=== PATIENT | female | born 1960 | race Caucasian/White ===

== ENCOUNTER 2019-10-26 23:57 | Inpatient (IN) | payer MEDICARE ==
[~2019-10-26] VITALS: Ht 170.2 cm; Wt 66.4 kg
--- NOTE | 2019-10-27 00:22 | NUR ---
PT BIB EMS FROM [facility] TRANSFER FOR ALTERED MENTAL STATUS WITH POSSIBLE UTI. PT BASLINE INCONTINENT, HX OF DEMENTIA. ON ROOM AIR, PT AOX4 ON ARRIVAL, NEURO INTACT, MOVES ALL. REQUESTING MEAL ON ARRIVAL TO ED. PT CONNECTED TO MONITORING, CALL LIGHT WITHIN REACH, ALL SAFETY MEASURES IN PLACE.
--- NOTE | 2019-10-27 00:37 | NUR ---
Jannette schrader in ED - 10/27/19 at 0037 by MELI TASK RN: PT ASSISTED TO BEDPAN AT THIS TIME. WET DIAPER REMOVED FROM PT. PT HAS CALL LIGHT WITHIN REACH AT THIS TIME.
--- NOTE | 2019-10-27 00:37 | NUR ---
TASK RN: PT ASSISTED TO BEDPAN AT THIS TIME. WET DIAPER REMOVED FROM PT. PT HAS CALL LIGHT WITHIN REACH AT THIS TIME.
--- NOTE | 2019-10-27 00:52 | NUR ---
TASK RN: PT PROVIDED WITH A SANDWICH FROM [employer] AFTER SUCCESSFULLY PASSING DYSPHAGIA SCREENING. PT RESTING COMFORTABLY IN RNEY WITH CALL LIGHT WITHIN REACH.
--- NOTE | 2019-10-27 01:17 | NUR ---
PT AOX3, BELIEVES THE YEAR IS 2011. PT OFF BEDPAN, VOIDED BLADDER, PT ATE 100% OF MEAL WITHOUT DIFFICULTY, CALL LIGHT WTIHIN REACH. ALL SAFETY MEASURES IN PLACE.
--- NOTE | 2019-10-27 01:41 | NUR ---
FIRST ATTEMPT TO CALL REPORT.
[2019-10-27] MEDS ORDERED: ONDANSETRON 2MG/ML, 2ML IVPush PRN (02:00)
[2019-10-27 02:43] VITALS: BP 110/71
[2019-10-27] MEDS ORDERED: LORazepam 2 MG/ML, 1ML IVPush ONE ×2 (07:00→14:30)
[2019-10-27 08:22] VITALS: BP 115/63
[2019-10-27] MEDS: ASPIRIN 81 MG TABLET CHEW PO/NG SCH (10:32)
[2019-10-27 10:36] VITALS: BP 107/70
--- NOTE | 2019-10-27 11:25 | NUR ---
Rec: chopped/thin liquids; Do not anticipate needs for [employer] intervention in regards to dysphagia at time of discharge. Addendum: 10/27/19 at 1125 by Nichelle MATHIS Amended: Links added.
[2019-10-27 12:51] VITALS: BP 103/71
[2019-10-27 16:33] VITALS: BP 123/73
[2019-10-27 19:32] VITALS: BP 117/62
[2019-10-27] MEDS: ATORVASTATIN 40 MG TABLET PO SCH (21:00)
[2019-10-28 01:01] VITALS: BP 124/71
[2019-10-28 06:23] VITALS: BP 109/68
[2019-10-28 09:14] LABS: ALBUMIN 3.5 g/dL (3.4-5.0); ANION GAP 7 mmol/L (5-15); CALCIUM 9.1 mg/dL (8.5-10.1); CHLORIDE 112 mmol/L (98-107)
[2019-10-28 09:18] LABS: CREATININE 0.64 mg/dL (0.55-1.02)
[2019-10-28 09:19] LABS: ALANINE AMINOTRANSFERASE 20 U/L (12-78); ALKALINE PHOSPHATASE 66 U/L (45-117); BILIRUBIN,TOTAL 0.4 mg/dL (0.2-1.0); CHOL/HDL RATIO 3.4; CHOLESTEROL, TOTAL 179 mg/dL (140-239); HDL CHOL % 30 % (28-40); HDL CHOLESTEROL (DIRECT) 53 mg/dL (40-60); LDL CHOLESTEROL,CALCULATED 104 mg/dL (54-169); TOTAL PROTEIN 7.6 g/dL (6.4-8.2); TRIGLYCERIDES 111 mg/dL (50-200); VLDL CHOLESTEROL 22 mg/dL (0-25)
[2019-10-28] MEDS: ASPIRIN 81 MG TABLET CHEW PO/NG SCH (09:48)
[2019-10-28 12:21] LABS: BASOPHILS # (AUTO) 0.04 x10^3/uL (0-0.1); BASOPHILS % (AUTO) 1 % (0-1); EOSINOPHILS # (AUTO) 0.22 x10^3/uL (0-0.4); EOSINOPHILS % (AUTO) 3 % (1-7); LYMPHOCYTES # (AUTO) 1.48 x10^3/uL (1-3.4); LYMPHOCYTES % (AUTO) 21 % (22-44); MD NO; MEAN CORPUSCULAR HGB CONC 33.4 g/dL (32.4-35.8); MEAN CORPUSCULAR VOLUME 101.8 fL (80-100); MEAN PLATELET VOLUME 8.9 fL (7.4-10.4); MONOCYTES # (AUTO) 0.33 x10^3/uL (0.2-0.8); MONOCYTES % (AUTO) 5 % (2-9); NEUTROPHILS # (AUTO) 4.87 x10^3/uL (1.8-6.8); NEUTROPHILS % (AUTO) 70 % (42-75); PLATELET COUNT 303 x10^3/uL (130-400); RED BLOOD COUNT 4.43 x10^6/uL (3.82-5.3); RED CELL DISTRIBUTION WIDTH 13.8 % (9.6-15.2)
[2019-10-28 12:24] VITALS: BP 120/74
[2019-10-28 19:00] VITALS: BP 139/81
[2019-10-28] MEDS: ATORVASTATIN 40 MG TABLET PO SCH (20:33)
[2019-10-29 02:00] VITALS: BP 131/76
[2019-10-29 02:22] LABS: MICROSCOPIC INDICATED
[2019-10-29 05:55] LABS: BASOPHILS # (AUTO) 0.04 x10^3/uL (0-0.1); BASOPHILS % (AUTO) 1 % (0-1); EOSINOPHILS # (AUTO) 0.22 x10^3/uL (0-0.4); EOSINOPHILS % (AUTO) 3 % (1-7); LYMPHOCYTES % (AUTO) 28 % (22-44); MD NO; MEAN CORPUSCULAR HEMOGLOBIN 33.3 pg (27.0-34.8); MEAN CORPUSCULAR HGB CONC 32.6 g/dL (32.4-35.8); MEAN CORPUSCULAR VOLUME 101.9 fL (80-100); MEAN PLATELET VOLUME 9.3 fL (7.4-10.4); MONOCYTES # (AUTO) 0.49 x10^3/uL (0.2-0.8); MONOCYTES % (AUTO) 7 % (2-9); NEUTROPHILS # (AUTO) 4.47 x10^3/uL (1.8-6.8); NEUTROPHILS % (AUTO) 62 % (42-75); PLATELET COUNT 302 x10^3/uL (130-400); RED BLOOD COUNT 4.45 x10^6/uL (3.82-5.3); RED CELL DISTRIBUTION WIDTH 13.8 % (9.6-15.2)
[2019-10-29 06:30] LABS: ALBUMIN 3.5 g/dL (3.4-5.0); ANION GAP 6 mmol/L (5-15); CALCIUM 8.9 mg/dL (8.5-10.1); CHLORIDE 109 mmol/L (98-107)
[2019-10-29 06:36] LABS: ALANINE AMINOTRANSFERASE 19 U/L (12-78); ALKALINE PHOSPHATASE 67 U/L (45-117); BILIRUBIN,TOTAL 0.7 mg/dL (0.2-1.0); TOTAL PROTEIN 7.6 g/dL (6.4-8.2)
[2019-10-29 06:40] VITALS: BP 121/75
[2019-10-29] MEDS: ASPIRIN 81 MG TABLET CHEW PO/NG SCH (09:01)
[2019-10-29 12:04] VITALS: BP 107/73
[2019-10-29 18:42] VITALS: BP 112/76
[2019-10-29] MEDS: ATORVASTATIN 40 MG TABLET PO SCH (21:01)
[2019-10-30 00:18] VITALS: BP 104/70
[2019-10-30 06:40] VITALS: BP 105/70
[2019-10-30] MEDS: ASPIRIN 81 MG TABLET CHEW PO/NG SCH (10:03)
[2019-10-30 13:32] VITALS: BP 107/71
[2019-10-30 19:56] VITALS: BP 112/79
[2019-10-30] MEDS: ATORVASTATIN 40 MG TABLET PO SCH (20:25)
[2019-10-31 01:02] VITALS: BP 120/78
[2019-10-31 06:53] VITALS: BP 121/83
[2019-10-31] MEDS: ASPIRIN 81 MG TABLET CHEW PO/NG SCH (08:05)
[2019-10-31 12:56] VITALS: BP 103/68
[2019-10-31 18:57] VITALS: BP 114/70
[2019-10-31] MEDS: ATORVASTATIN 40 MG TABLET PO SCH (20:36)
[2019-11-01 00:31] VITALS: BP 105/68
[2019-11-01 07:36] VITALS: BP 112/71
[2019-11-01] MEDS: ASPIRIN 81 MG TABLET CHEW PO/NG SCH (09:02)
[2019-11-01 12:45] VITALS: BP 107/66
[2019-11-01] MEDS ORDERED: ASPI-515 PO/NG (13:29)
[2019-11-01] MEDS ORDERED: ATOR40TA78 PO (13:29)
== END 2019-11-01 14:35 | disposition home or self-care (01) | DRG 69 ==
LOC: ED 10-27 00:15 → EDIP 10-27 01:01 → 5SO 10-27 02:59 → 4WST 10-28 06:19
PROVIDERS: ADMIT Internal Medicine; ATTEND Internal Medicine
DX: G45.9 Transient cerebral ischemic attack, unspecified (principal); G93.41 Metabolic encephalopathy; N39.0 Urinary tract infection, site not specified; G20 Parkinson's disease; H70.93 Unspecified mastoiditis, bilateral; F03.90 Unspecified dementia, unspecified severity, without behavioral disturbance, psychotic disturbance, mood disturbance, and anxiety; N32.81 Overactive bladder; Z85.3 Personal history of malignant neoplasm of breast; Z90.710 Acquired absence of both cervix and uterus; Z90.12 Acquired absence of left breast and nipple
CPT/HCPCS: 36415; 70551; 80053; 80061; 81001; 82140; 82607; 82962; 83735; 84443; 85025; 93306; 93880; 96374; 99285; G0378; 92523-GN; J2060